=== PATIENT | male | born 1995 | race Caucasian/White ===

== ENCOUNTER 2019-06-15 19:25 | Emergency (ER) | payer SELFPAY ==
--- NOTE | ~2019-06-15 | CT_ITS ---
EXAMINATION: CT abdomen pelvis w con DATE: 06/16/2019 00:36 INDICATION: Gallbladder disorder. Right upper quadrant abdominal pain. Chest pain. TECHNIQUE: Computed tomography (CT) of the abdomen and pelvis was performed with 100 mL Omnipaque 350 intravenous contrast. Automated exposure control and iterative reconstruction technique were employe d. The dose-length product was 1652.32 mGy-cm. COMPARISON: None. FINDINGS: The visualized portions of the lung bases are clear without pneumonia or pleural effusion. The heart size is normal. No pericardial effusion. The liver, gallbladder, spleen, pancreas, adrenal glands, and kidneys are normal. There are no dilated loops of bowel. The appendix is normal. There ar e no pathologically enlarged lymph nodes. There is no free intraperitoneal fluid. The bones are unrem arkable. IMPRESSION: 1. No etiology for the patient's symptoms. Reviewed, dictated and finalized at location A. RER
--- NOTE | ~2019-06-15 | XR_ITS ---
EXAMINATION: XR chest 2V DATE: 06/15/2019 20:04 INDICATION: Shortness of breath, mid chest pain and right upper quadrant abdominal pain TECHNIQUE: PA and lateral views of the chest were obtained. COMPARISON: Chest radiograph dated 12/30/2008 FINDINGS: Small lung volumes. No focal airspace opacities, pulmonary edema, pleural effusion or pneumothorax. C ardiac silhouette appears enlarged although may be exaggerated by the small lung volumes. Mediastinal silhouette is normal. Visualized bones and soft tissues are unremarkable. IMPRESSION: 1. Enlarged cardiac silhouette which may be artifactual due to decreased volumes of the lungs which a ppear clear. Reviewed, dictated and finalized at location A. CIPAL BIOINFORMATICS SPECIALIST IMPRESSION: 1. Enlarged cardiac silhouette which may be artifactual due to decreased volume s of the lungs which appear clear.
--- NOTE | 2019-06-15 19:35 | ECG_ITS ---
Measurements Intervals [place] Rate: 90 P: 28 VT: 146 QRS: -15 QRSD: 107 T: 38 QT: 361 QTc: 443 Interpretive Statements SINUS RHYTHM BORDERLINE R WAVE PROGRESSION, ANTERIOR LEADS BORDERLINE T WAVE ABNORMALITY- ANTERIOR LEADS BASELINE ARTIFACT- I, II, III, AVR, AVL, AVF BORDERLINE ECG Electronically Signed On 06-15-2019 20:18:23 FLOW MANAGER by Toribio Poole D.O.
[2019-06-15 19:43] VITALS: BP 151/89; PULSE 94; RESP 16; TEMP 37; O2SAT 97
[2019-06-15 19:47] LABS: Basophils Percent Auto 0.5 % (0.2-1.2); Eosinophils Absolute Auto 0.1 K/mm3 (0-0.3); Eosinophils Percent Auto 1.3 % (0-4.4); Hematocrit 43.8 % (42.0-52.0); Hemoglobin 14.8 g/dL (14.0-18.0); Immature Granulocyte Absolute 0.02 K/mm3 (0.00-0.031); Immature Granulocyte Percent A 0.2 % (0-0.5); Lymphocytes Absolute Auto 2.51 K/mm3 (0.9-3.2); Lymphocytes Percent Auto 30.2 % (18.3-44.2); Mean Corpuscular HGB Conc 33.8 g/dl (32-36); Mean Corpuscular Hemoglobin 29.5 pg (26-34); Mean Corpuscular Volume 87.4 fl (80-100); Mean Platelet Volume 11.7 fl (7.4-10.4); Monocytes Absolute Auto 0.7 K/mm3 (0.1-0.6); Monocytes Percent Auto 7.9 % (2.6-8.5); Neutrophils Percent Auto 59.9 % (45.5-73.1); Platelet Count Result 250 k/mm3 (150-375); Red Blood Count 5.01 M/mm3 (4.6-6.20); Red Cell Distribution Width 12.7 % (11.5-14.5); White Blood Count 8.3 K/mm3 (4.5-10.0)
[2019-06-15 19:57] LABS: INR 0.9
[2019-06-15 19:58] LABS: Partial Thromboplastin Time 31.9 SECONDS (22.3-36.8)
[2019-06-15 20:04] LABS: Blood Urea Nitrogen 14 mg/dL (9-20); Calcium 9.2 mg/dL (8.4-10.2); Carbon Dioxide 24 mmol/L (22-30); Chloride 101 mmol/L (98-107); Estimated Glomerular Filt Rate > 60; Glucose 75 mg/dL (75-110); Lipase 64 U/L (23-300); Potassium 4.3 mmol/L (3.4-5.0); Sodium 139 mmol/L (137-145)
[2019-06-15 20:11] LABS: Troponin I < 0.012 ng/mL (0.000-0.034)
[2019-06-15 21:50] VITALS: BP 134/74; PULSE 71; PULSE 81; RESP 14; TEMP 36.8; O2SAT 97
--- NOTE | 2019-06-15 22:51 | ED.CHESTPAIN ---
HPI - Chest Pain General Chief Complaint: Chest Pain Stated Complaint: cp and ruq pain Time Seen by Provider: 06/15/19 22:26 Source: patient and RN notes reviewed Mode of arrival: ambulatory Limitations: no limitations History of Present Illness HPI narrative: Pt is a 23 y/o male presenting to the ED c/o ABD pain. Pt reports he has been experiencing RUQ ABD pain for a few months. Pt states the pain is alleviated by applying pressure to his RUQ and worsened with movement. Pt notes the pain is intermittent and usually lasts about an hour, but states the pain today has lasted for about 4-5 hrs. Pt also reports diaphoresis, CP, SOB, lightheadedness, diarrhea, nausea, congestion, but denies vomiting, fever, or chills. Pt states he went to a doctor for the first time in years and notes they wanted to have a liver and Pancreas US but notes he could not pay for it. Pt denies previous ABD surgeries, smoking, or alcohol use. Pertinent past history: other (None) Onset (ago): month(s) Timing of current episode: episodic Prior episodes: Yes Associated symptoms: nausea, diaphoresis and other (CP; SOB; lightheadedness; diarrhea; congestion) Related Data Allergies Allergy/AdvReac Type Severity Reaction Status Date / Time amoxicillin Allergy Mild Unverified 12/30/08 14:34 POTASSIUM CLAVULANATE Allergy Mild Uncoded 12/30/08 14:34 Review of Systems Review of Systems: All systems reviewed & are unremarkable except as noted in HPI and below Constitutional: Constitutional: Denies chills and Denies fever(s) ENT: Reports nasal congestion Cardiovascular: Cardiovascular: Reports chest pain, Reports diaphoresis and Reports lightheadedness Respiratory: Respiratory: Reports dyspnea Gastrointestinal: Gastrointestinal: Reports abdominal pain (RUQ), Reports diarrhea, Reports nausea and Denies vomiting PMFSH Social History Social History Smoking status: Never smoker Exam Narrative: Exam Narrative: General appearance: Well-developed, well-nourished Skin: Normal color Head: Normocephalic, nontraumatic Eyes: Clear conjunctiva ENT: Oropharynx normal, ears normal, nose normal Neck: Supple, nontender Chest and respiratory: Airway patent, no respiratory distress, no accessory muscle use Heart: Regular rate/rhythm Abdomen: Soft, moderate tenderness right upper quadrant, positive Torres sign, no organomegaly, quiet bowel sounds Vascular: Normal peripheral pulses, normal capillary refill. Musculoskeletal: Normal range of motion, nontender back Neurologic: Alert and oriented ?3, STUDENT SUCCESS ADVISOR is normal as tested, no gross motor deficit Course Course Emergency Course: Improving Vital Signs Vital signs: Vital Signs Temperature 37.0 C 06/15/19 19:43 Pulse Rate 94 06/15/19 19:43 Respiratory Rate 16 06/15/19 19:43 Blood Pressure 151/89 H 06/15/19 19:43 Pulse Oximetry 97 06/15/19 19:43 Temperature 36.8 C 06/15/19 21:50 Pulse Rate 70 06/16/19 00:07 Respiratory Rate 19 06/16/19 00:07 Blood Pressure 136/71 06/16/19 00:07 Pulse Oximetry 98 06/16/19 00:07 MDM - Chest Pain MDM Narrative Medical decision making narrative: Right upper quadrant pain, worse with eating raises the suspicious for cholecystitis, choledocholithiasis or cholelithiasis. Labs, CT abdomen and pelvis with IV contrast, IV fluid, IV Dilaudid and Zofran ordered. Further plan to follow Differential Diagnosis Differential diagnosis: Likely other (Abdominal pain, cholecystitis, pyelonephritis kidney infection, diverticulitis, constipation, IBS) Lab Data Result diagrams: 06/15/19 19:41 06/15/19 19:41 Labs: Lab Result
[2019-06-15] MEDS: HYDROMORPHONE HCL 1 MG/ML INJ 0.5 MG IV PUSH (23:45)
[2019-06-16] MEDS: ONDANSETRON INJ 4 MG/2 ML VIAL IV PUSH (00:04)
[2019-06-16] MEDS: SODIUM CHLORIDE 0.9% IV 1,000 ML 999 ML IV CONT (00:04)
[2019-06-16 00:07] VITALS: BP 136/71; PULSE 70; RESP 19; O2SAT 98
--- NOTE | 2019-06-16 00:22 | PC.NURSE ---
Patient taken to radiology.
[2019-06-16 02:17] VITALS: BP 121/79; PULSE 69; RESP 20; O2SAT 97
== END 2019-06-16 02:15 | disposition home or self-care (01) ==
PROVIDERS: Emergency Provider Emergency Medicine
DX: R10.11 Right upper quadrant pain (principal)
CPT/HCPCS: 36415; 71046; 74177; 80048; 83690; 84484; 85025; 85610; 85730; 93005; 96361; 96374; 99284; J1170; J2405; J7030; Q9967

== ENCOUNTER 2020-03-21 14:40 | Emergency (ER) | payer OTHER, SELFPAY ==
--- NOTE | ~2020-03-21 | XR_ITS ---
XR chest 1V portable DATE: 03/21/2020 15:16 INDICATION: Cough, sore throat, congestion, drainage for 3 days TECHNIQUE: Portable upright AP chest on 03/21/2020 at 1518 hours COMPARISON: 06/15/2019 PA and lateral chest FINDINGS: Normal heart size. No hilar or mediastinal enlargement. No pulmonary infiltrate or consolidation, pleural effusion or pulmonary vascular congestion or pneumo thorax. Included skeletal structures are unremarkable. IMPRESSION: No active cardiopulmonary disease Reviewed, dictated and finalized at location A. F ACCOUNTANT
[2020-03-21 14:48] VITALS: BP 140/61; PULSE 78; RESP 20; TEMP 36.7; O2SAT 99
--- NOTE | 2020-03-21 15:43 | ED.GENADULT ---
HPI - General Adult General Chief complaint: Unspecified Stated complaint: sore throat Time Seen by Provider: 03/21/20 15:00 Source: RN notes reviewed History of Present Illness HPI narrative: Patient presents emergency department from home for upper respiratory infection. Patient states starting 3 days ago he began to have sinus congestion with rhinorrhea and a sore throat. States is been associated with a cough this been nonproductive. Denies any fevers or chills ear pain shortness of breath chest pain abdominal pain nausea vomiting or any other symptoms. Related Data Allergies Allergy/AdvReac Type Severity Reaction Status Date / Time amoxicillin Allergy Mild Unverified 12/30/08 14:34 POTASSIUM CLAVULANATE Allergy Mild Uncoded 12/30/08 14:34 Review of Systems Review of Systems: Narrative: Gen.: Denies fevers or chills Eyes: Denies eye pain or visual change ENT: Reports congestion Respiratory: Reports cough CV: Denies chest pain or palpitations GI: Denies abdominal pain nausea, emesis or diarrhea Musculoskeletal: Denies back pain or muscle pain Neuro: Denies numbness, tingling, weakness or focal weakness Skin: Denies rash Except as documented, all other systems reviewed and negative [facility] Past Medical History Medical History (Updated 03/21/20 @ 15:45 by Selwyn Mcclelland DO) Anxiety Depression Surgical History Surgical History (Updated 04/18/19 @ 14:06 by John Lyles) H/O adenoidectomy History of tonsillectomy Social History Social History Smoking status: Never smoker Exam Narrative: Exam Narrative: APPEARANCE: No acute distress, nontoxic, resting in bed EYES: EOMI HEENT: Normocephalic, atraumatic, TMs clear bilaterally, bilateral turbinates boggy, erythema the posterior pharynx bilateral tonsils tonsils 2+ with no exudate, uvula midline, tolerating own secretions, no trismus RESPIRATORY: No respiratory distress Clear to auscultation bilaterally with no rhonchi wheezing or rales. CARDIOVASCULAR: Regular rate and rhythm without murmurs rubs or gallops. ABDOMINAL: Soft, nontender, nondistended, no rebound or guarding MUSCULOSKELETAl: Moves all extremities. No clubbing, cyanosis or edema. NEURO: Awake and alert. Following commands, speech normal, no focal deficits SKIN:: Warm, dry. No rashes lesions or abrasions PSYCHIATRIC: Normal affect/mood, Course Course Emergency Course: Discussed with patient results of workup and diagnosis. Discussed need for follow-up with primary care, proper use of medication, and reasons to return to the emergency department. Patient understands and agrees to current treatment plan discussed with patient Covid testing and with current cough and self-isolation Vital Signs Vital signs: Vital Signs Temperature 98.1 F 03/21/20 14:48 Pulse Rate 78 03/21/20 14:48 Respiratory Rate 20 03/21/20 14:48 Blood Pressure 140/61 03/21/20 14:48 Pulse Oximetry 99 03/21/20 14:48 Temperature 98.1 F 03/21/20 14:48 Pulse Rate 78 03/21/20 14:48 Respiratory Rate 20 03/21/20 14:48 Blood Pressure 140/61 03/21/20 14:48 Pulse Oximetry 99 03/21/20 14:48 Medical Decision Making Vital Signs Vital Signs: Vital Signs Temperature 98.1 F 03/21/20 14:48 Pulse Rate 78 03/21/20 14:48 Respiratory Rate 20 03/21/20 14:48 Blood Pressure 140/61 03/21/20 14:48 Pulse Oximetry 99 03/21/20 14:48 Temperature 98.1 F 03/21/20 14:48 Pulse Rate 78 03/21/20 14:48 Respiratory Rate 20 03/21/20 14:48 Blood Pressure 140/61 03/21/20 14:48 Pulse Oximetry 99 03/21/20 14:48 Lab Data Labs: Strep Screen Presumptive Negative *(Reference Range: Negative)* Discharge Plan Discharge Clinical Impression: Pharyngitis Patient Disposition: Home, Self-Care Condition: Stable Instructions: Antibiotic Form, Pharyngitis (ED) Addition
[2020-03-21] MEDS: ACETAMINOPHEN 500 MG TABLET 1000 MG PO (16:02)
[2020-03-21] MEDS: LORATADINE 10 MG TABLET PO (16:02)
[2020-03-22 01:06] LABS: SARS-CoV-2 RNA PCR Negative
== END 2020-03-21 16:05 | disposition home or self-care (01) ==
PROVIDERS: Emergency Provider Emergency Medicine; Referring Provider Internal Medicine
DX: J02.9 Acute pharyngitis, unspecified (principal); Z20.828 Contact with and (suspected) exposure to other viral communicable diseases
CPT/HCPCS: 71045; 87081; 87635; 87880; 99283; A9270; C9803; U0003

== ENCOUNTER 2022-08-20 20:31 | Emergency (ER) | payer SELFPAY ==
--- NOTE | ~2022-08-20 | XR_ITS ---
EXAM: XR finger 1st RT min 2V DATE: 08/20/2022 22:02 HISTORY: LACERATION TO 1ST DIGIT . COMPARISON: None available. FINDINGS: Normal mineralization. No fracture or dislocation. No lytic or blastic lesion. Joint space s are maintained. No erosion or periosteal change. Soft tissues within normal limits. IMPRESSION: No acute osseous finding in the right first digit. Reviewed, dictated and finalized at location K.
[2022-08-20 20:55] VITALS: BP 147/70; PULSE 68; RESP 16; TEMP 36.5; O2SAT 100
[2022-08-20 22:07] VITALS: BP 150/92; PULSE 68; RESP 17; TEMP 36.8; O2SAT 99
--- NOTE | 2022-08-20 22:49 | ED.GENADULT ---
HPI - General Adult General Chief complaint: Wound/Laceration <JEM Vu Last Filed: 08/21/22 01:06> Stated complaint: laceration to R thumb <JEM Vu Last Filed: 08/21/22 01:06> Time Seen by Provider: 08/20/22 21:52 <JEM Vu Last Filed: 08/21/22 01:06> Source: patient <JEM Vu Last Filed: 08/21/22 01:06> Mode of arrival: ambulatory <JEM Vu Last Filed: 08/21/22 01:06> Limitations: no limitations <JEM Vu Last Filed: 08/21/22 01:06> History of Present Illness HPI narrative: This is a 26-year-old male presents to the ED with chief complaint of right thumb laceration onset this evening at 8 PM. Patient was cooking and cut his thumb with a cooking knife on accident. Reports mild pain at the site of the laceration. Denies any further site of pain or injury. Denies numbness or weakness. Patient states tetanus is not up-to-date but he is allergic to the tetanus vaccine. <JEM Vu Last Filed: 08/21/22 01:06> Related Data Allergies/adverse reactions: Allergies Allergy/AdvReac Type Severity Reaction Status Date / Time tetanus and diphtheria Allergy Swelling Verified 08/20/22 22:06 toxoids <JEM Vu Last Filed: 08/21/22 01:06> Review of Systems Review of Systems: CONSTITUTIONAL: Denies fever, chills, or sweats. EYES: Denies visual changes, redness, or discharge. SKIN: Endorses laceration. Denies rash or itching. MUSCULOSKELETAL: Denies back pain, joint pain, or myalgia. NEUROLOGIC: Denies headache, numbness, dizziness, or weakness. PSYCHIATRIC: Denies anxiety or depression. <JEM Vu Last Filed: 08/21/22 01:06> [facility]LY [facility] Past Medical History Medical History: Medical History (Updated 08/21/22 @ 00:00 by Caitlin Fishman) Anxiety Depression <Erick Hardwick PA-C - Last Filed: 08/21/22 01:06> Surgical History Surgical History: Surgical History (Updated 04/18/19 @ 14:06 by John Lyles) H/O adenoidectomy History of tonsillectomy <Erick Hardwick PA-C - Last Filed: 08/21/22 01:06> Social History Social History: Social History Smoking status: Never smoker <Erick Hardwick PA-C - Last Filed: 08/21/22 01:06> Exam Narrative: GENERAL: Well-appearing, well-nourished, and in no acute distress. HEAD: Normocephalic, atraumatic. EYES: PERRLA and EOMI. EXTREMITIES: Right hand: 1 cm simple, clean laceration to the right medial thumb. Bleeding controlled. Depth 3 mm. No foreign bodies noted. Full strength and sensation throughout the right thumb. Neurovascular intact distally. Left hand: Benign MSK exam is otherwise benign. Normal range of motion. No edema. SKIN: Warm, dry, no rash. NEURO: Alert and oriented x3. No focal deficits. PSYCH: Normal mood and affect. <Erick Hardwick PA-C - Last Filed: 08/21/22 01:06> Course DIRECTOR OF EPIDEMIOLOGY/PA Physician Supervision I agree with midlevel documentation; I performed the medical decision making component of this evaluation. <Enriqueta Epstein MD - Last Filed: 08/21/22 07:25> Vital Signs Vital signs: Vital Signs Temperature 97.7 F 08/20/22 20:55 Pulse Rate 68 08/20/22 20:55 Respiratory Rate 16 08/20/22 20:55 Blood Pressure 147/70 H 08/20/22 20:55 Pulse Oximetry 100 08/20/22 20:55 Oxygen Delivery Room Air 08/20/22 20:55 Temperature 98.2 F 08/20/22 22:07 Pulse Rate 80 08/20/22 23:00 Respiratory Rate 14 08/20/22 23:00 Blood Pressure 123/74 08/20/22 23:00 Pulse Oximetry 97 08/20/22 23:00 Oxygen Delivery Room Air 08/20/22 20:55 <Erick Hardwick PA-C - Last Filed: 08/21/22 01:06> Vital Signs Temperature 97.7 F 08/20/22 20:55 Pulse Rate 68 08/20/22 20:55 Respiratory Rate 16 08/20/22 20:55 Blood Pressure 147/70 H 08/20/22 20:55 Pulse Oximetry 100 08/20/22 20:55 Oxygen Delive
[2022-08-20 23:00] VITALS: BP 123/74; PULSE 80; RESP 14; O2SAT 97
== END 2022-08-20 23:00 | disposition home or self-care (01) ==
PROVIDERS: Emergency Provider Emergency Medicine
DX: S61.011A Laceration without foreign body of right thumb without damage to nail, initial encounter (principal); W26.0XXA Contact with knife, initial encounter
CPT/HCPCS: 12011; 73140; 99283